=== PATIENT | female | born 1995 | race Caucasian/White ===

== ENCOUNTER 2022-06-08 04:20 | Day surgery (SDC) | payer BC ==
[2022-06-04 15:46] VITALS: BMI 23.3
[2022-06-08] MEDS ORDERED: PROPOFOL 20 ML ONE (09:35)
[2022-06-08] MEDS ORDERED: MIDAZOLAM HCL 2 MG/2 ML SINGLE DOSE VIAL ONE (09:35)
[2022-06-08] MEDS ORDERED: BUPIVACAINE HCL/PF 0.25% (2.5MG/ML) 10 ML VIAL ONE (09:53)
[2022-06-08] MEDS ORDERED: cefOXitin SODIUM 2 GM VIAL (RESTRICTED TO ID) IVPB ONE (10:02)
[2022-06-08] MEDS ORDERED: CEFOXITIN SODIUM 1 GM IVPB ONE (10:04)
[2022-06-08] MEDS ORDERED: ONDANSETRON 4 MG/2 ML VIAL IVPUSH PRN (11:00)
[2022-06-08] MEDS ORDERED: oxyCODONE HCL 5 MG TABLET PO PRN (11:00)
[2022-06-08] MEDS ORDERED: ACETAMINOPHEN 325 MG TABLET (FP) PO PRN (11:00)
[2022-06-08] MEDS ORDERED: LACTATED RINGERS SOLUTION 1,000 ML IV SCH (11:00)
[2022-06-08] MEDS ORDERED: oxyCODONE HCL 5 MG TABLET ONE ×2 (11:52→12:17)
[2022-06-08] MEDS ORDERED: oxyCODONE HCL 5 MG TABLET PO ONE ×2 (11:55→12:20)
[2022-06-08 13:06] VITALS: RESP 18
[2022-06-08 13:39] VITALS: BP 115/62; PULSE 66; TEMP 97.7
== END 2022-06-08 13:45 | disposition home or self-care (01) ==
LOC: JASU-SURG 04:20
PROVIDERS: ATTEND Surgery
PROC: 06BY4ZC Excision of Hemorrhoidal Plexus, Percutaneous Endoscopic Approach (ICD-10-PCS; principal; 2022-06-08 09:00)
DX: K64.8 Other hemorrhoids (principal)
CPT/HCPCS: 81025; 88304-TC; 94760